=== PATIENT | female | born 1945 | race Caucasian/White ===

== ENCOUNTER 2022-11-06 19:25 | Emergency (ER) | payer MEDICARE, BC ==
[~2022-11-06] VITALS: Ht 177.8 cm; Wt 93.0 kg
[2022-11-06 20:28] LABS: BASOPHILS % (AUTO) 0.7 % (0-1); EOSINOPHILS # (AUTO) 0.4 X10'3 (0-0.9); EOSINOPHILS % (AUTO) 5.6 % (0-6); HEMATOCRIT 41.6 % (35.0-45.0); HEMOGLOBIN 13.7 g/dl (12.0-16.0); LYMPHOCYTES # (AUTO) 2.4 X10'3 (1.1-4.8); LYMPHOCYTES % (AUTO) 33.1 % (21-51); MEAN CORPUSCULAR HEMOGLOBIN 31.3 PG (27.0-31.0); MEAN CORPUSCULAR HGB CONC 33.1 g/dL (33.0-36.5); MEAN CORPUSCULAR VOLUME 94.6 FL (78-98); MEAN PLATELET VOLUME 8.7 FL (7.4-10.4); MONOCYTES # (AUTO) 0.7 X10'3 (0-0.9); MONOCYTES % (AUTO) 10.5 % (2-12); NEUTROPHILS # (AUTO) 3.6 X10'3 (1.8-7.7); NEUTROPHILS % (AUTO) 50.1 % (42-75); PLATELET COUNT 275 X10'3 (140-440); RED BLOOD COUNT 4.39 X10'6 (4.20-5.60); WHITE BLOOD COUNT 7.1 X10'3 (4.5-11.0)
[2022-11-06 20:33] LABS: ALANINE AMINOTRANSFERASE 34 U/L (12-78); ALBUMIN 4.1 G/DL (3.4-5.0); ALBUMIN/GLOBULIN RATIO 1.3 (1.1-1.5); ALKALINE PHOSPHATASE 59 IU/L (46-116); ANION GAP 8 (8-16); ASPARTATE AMINO TRANSFERASE 22 U/L (10-37); BILIRUBIN,TOTAL 1.2 MG/DL (0.1-1.0); BLOOD UREA NITROGEN 18 MG/DL (7-18); BUN/CREATININE RATIO 13.4 (10.0-20.0); CALCIUM 9.1 MG/DL (8.5-10.1); CHLORIDE 106 MMOL/L (99-107); CREATININE 1.34 MG/DL (0.40-0.90); GLUCOSE 114 MG/DL (70-104); POTASSIUM 4.2 MMOL/L (3.5-5.1); SODIUM 143 MMOL/L (135-145); TOTAL CARBON DIOXIDE 29.1 MMOL/L (24-32); TOTAL PROTEIN 7.2 G/DL (6.4-8.2); eGFR 39 ML/MIN
[2022-11-06] MEDS ORDERED: methylPREDNISolone sod succ 125mg/2ml vial IV ONE (20:35)
[2022-11-06] MEDS ORDERED: ipratropium/albuterol 3ml nebule NEB ONE (20:35)
[2022-11-06] MEDS ORDERED: normal saline 1000ML IV soln IVB ONE (20:35)
[2022-11-06] MEDS ORDERED: CefTRIAXone 2gm/D5W 50ml BAG 50 ML IV ONE (20:35)
[2022-11-06] MEDS ORDERED: AMOX-117 PO (21:52)
[2022-11-06] MEDS ORDERED: PRED10TA23 PO (21:52)
[2022-11-06] MEDS ORDERED: GUAI118S42 PO (21:52)
[2022-11-06] MEDS ORDERED: BUDE10.7 INH (21:52)
[2022-11-06 22:01] VITALS: BP 142/73
== END 2022-11-06 22:02 | disposition home or self-care (01) ==
LOC: ER 19:26
DX: J18.0 Bronchopneumonia, unspecified organism (principal)
CPT/HCPCS: 36415; 71046; 80053; 83880; 85025; 93005; 94640; 96365; 96375; 99285; J0696; J2930; J7030; J7040; 94760

== ENCOUNTER 2025-01-23 10:22 | Emergency (ER) | payer MEDICARE ==
[~2025-01-23] VITALS: Ht 177.8 cm; Wt 86.4 kg
[~2025-01-23 10:22] MED LIST: BUDE10.7 INH; GUAI118S42 PO
[2025-01-23 10:25] VITALS: BP 149/57; PULSE 63; RESP 18; TEMP 97.6; O2SAT 97
--- NOTE | 2025-01-23 10:38 | Physician Documentation ---
History of Present Illness ~ Chief Complaint: Knee Pain Stated Complaint: R KNEE PAIN Time Seen by MD: 10:34 Primary Medical Doctor: ALBINO THAKKAR HPI A 79-year-old female presents to the ED complaint of chronic right knee pain after kneeling down 1 month ago and hearing a pop sound she states that she now has increased pain and swelling in the medial aspect of her knee. denies any instability. Day of Onset: Jan 23, 2025 Tetanus witin 5 years: Yes (2019) Medication Reconciliation Allergies: Coded Allergies: No Known Allergies (Unverified , 01/23/25) Scheduled Budesonide/Glycopyr/Formoterol (Breztri Aerosphere Inhaler), 2 PUFFS INH BID Diclofenac Sodium (Voltaren Arthritis Pain), 1 APPLIC TOP BID Guaifenesin/Dextromethorphan (Tussin Dm Clear Syrup), 5 ML PO Q8H Past Medical History Past Medical History: No Pertinent History Past Surgical History: noncontributory Lives with: Spouse Lives In: Home Review of Systems All Other Systems at this time: Reviewed and Negative ROS As stated above in the HPI, otherwise all systems are reviewed and negative. Physical Exam Vital Signs: Temperature: 97.6, Source: Temporal, Heart Rate: 63, Respiratory Rate: 18, BP: 149/57, Pulse Oximetry: 97, Weight: 86.400 Physical Exam General: Alert, no apparent distress. Extremities: Normal range of motion, no deformity. Unstable medial aspect of the right he had a Catracho's test in both internal and external rotation negative Mykel's drawer test Neurologic: Oriented x4. Psychiatric: Normal mood and affect. Progress Results/Orders Results/Orders Orders - NAY LISA CISO Knee, Complete (01/23/25 10:27) Completed Orders - NAY LISA CISO Knee, Complete (01/23/25 10:27) Vital Signs 01/23/25 10:25 Temp 97.6 Pulse 63 Resp 18 B/P (MAP) 149/57 Pulse Ox 97 Medical Decision Making Findings Patient's physical exam was mostly unremarkable. However, based on her complaint I do suspect internal knee derangement and likely meniscal tear. She can be evaluated for this in the outpatient setting. I did send some Voltaren gel to help with the pain and inflammation General Diff Dx:Considerations: Include: Abrasion, Contusion, Fracture, Hematoma, Laceration, Malunion, Neurovascular injury, Open fracture, Sprain, Ul cer, Other Knee Diff Dx:Considerations: Include: Abrasion, Arthritis, Contusion, DJD, Fracture-femur, Fracture-fibula, Fracture-patella, Fracture-tibia, Gout, Hematoma, Laceration, Meniscus injury, Neurovascular injury, Open fracture, Rheumatoid arthritis, Septic, Sprain, Sprain-MCL, Sprain-LCL, Sprain-ACL, Sprain-PCL, Other Departure Disposition: HOME / SELF CARE / HOMELESS Impression: Primary Impression: Knee pain Condition: Stable Discharge Instructions: Acute Knee Pain, Adult Additional Instructions: As discussed with think he would benefit from obtaining further imaging including an MRI. I do suspect there may be some internal knee derangement which requires this imaging. You may obtain this in the outpatient setting from your primary care. Referrals: NO PRIMARY CARE PROVIDER (PCP) Prescriptions Diclofenac Sodium (Voltaren Arthritis Pain) 1 % Gel..gram. 1 APPLIC TOP BID for pain for 10 Days, #30 GM Prov: NAY LISA NP 01/23/25 Education Educated: Patient Educated regarding: diagnosis Signature Scribe Signature: gf Attestation: Scribed for Nay Lisa Np by Nay Sands NP . 01/23/25 10:54 NAY LISA NP Jan 23, 2025 10:38
[2025-01-23] MEDS ORDERED: DICL20GE TOP (10:53)
--- NOTE | 2025-01-23 10:54 | RADIOLOGY REPORT ---
DI KNEE, COMP 4 VW MIN, INDICATION: 79 old Female KNEE PAIN TECHNICAL DATA: Frontal , oblique and lateral views were obtained of the right knee. COMPARISON: No prior FINDINGS: No fracture is identified. Medial, lateral and patellofemoral compartment joint spaces are maintained . Alignment is anatomic. Soft tissues are within normal limits. No joint effusion is demonstrated. IMPRESSION: No acute fracture or dislocation of the right knee.
== END 2025-01-23 11:03 | disposition home or self-care (01) ==
LOC: ER 10:22
DX: M25.561 Pain in right knee (principal)
CPT/HCPCS: 73564; 99283